=== PATIENT | male | born 1970 | race African-American/Black ===

== ENCOUNTER 2025-06-29 22:51 | Emergency (ER) | payer MEDICAID ==
[~2025-06-29] VITALS: Ht 185.4 cm; Wt 77.3 kg
[2025-06-29 23:02] VITALS: TEMP 97.5
[2025-06-29 23:31] LABS: PLATELET COUNT (AUTO) 163 K/uL (150-450); RED BLOOD CELL COUNT(AUTO) 4.63 MIL/uL (4.50-5.90); RED CELL DISTRIBUTION WIDTH 13.3 % (11.5-14.5); WHITE BLOOD COUNT (AUTO) 4.8 K/uL (4.5-11.0)
[2025-06-29 23:42] LABS: CALCIUM, TOTAL 8.5 mg/dL (8.8-10.5); CREATININE 0.79 mg/dL (0.60-1.30); GLOMERULAR FILTR. RATE CALC > 60 mL/min (>60); GLUCOSE,RANDOM 143 mg/dL (70-110); SODIUM SERUM 136 mmol/L (136-145); UREA NITROGEN, BLOOD 17 mg/dL (7-18)
[2025-06-29 23:45] LABS: ASPARTATE AMINOTRANSFERASE 26.0 U/L (15-37); TOTAL PROTEIN, SERUM 7.0 g/dL (6.4-8.2)
[2025-06-29] MEDS: MAG HYDROX/ALUMINUM HYD/SIMETH ES 30 ML SUSPENSION UDCUP PO ONE (23:53)
[2025-06-29 23:55] LABS: TROPONIN I-HIGH SENSITIVITY 5 ng/L (<76)
[2025-06-29] MEDS: KETOROLAC TROMETHAMINE 30 MG/ML VIAL IM ONE (23:58)
[2025-06-30] MEDS ORDERED: IOHEXOL 350 MG/ML 100 ML VIAL ONE (01:24)
[2025-06-30] MEDS ORDERED: SODIUM CHLORIDE 0.9% 100 ML ONE (01:24)
[2025-06-30 02:27] LABS: APPEARANCE,URINE CLEAR (CLEAR); GLUCOSE, URINE (UA) NEGATIVE (NEGATIVE); LEUKOCYTE ESTERASE ,URINE NEGATIVE (NEGATIVE); NITRATE,URINE NEGATIVE (NEGATIVE); OCCULT BLOOD,URINE NEGATIVE (NEGATIVE); SPECIFIC GRAVITIY, URINE 1.031 (1.003-1.030)
[2025-06-30 05:00] VITALS: BP 142/77; PULSE 56; RESP 16; O2SAT 98
[2025-06-30] MEDS ORDERED: PANT-31 PO (05:06)
== END 2025-06-30 05:57 | disposition home or self-care (01) ==
LOC: EMS 22:53
DX: K21.9 Gastro-esophageal reflux disease without esophagitis (principal); R11.0 Nausea; R10.13 Epigastric pain; I10 Essential (primary) hypertension
CPT/HCPCS: 99285; 80048; 80076; 81003; 83690; 84484; 85025; 36415; 93005; 96372; 74177; 96374; 76705; J1885; Q9967; J1171; J7050